=== PATIENT | male | born 1980 | race Caucasian/White ===

== ENCOUNTER 2022-05-17 08:37 | Emergency (ER) | payer OTHER ==
[~2022-05-17] VITALS: Ht 182.9 cm; Wt 98.0 kg
[2022-05-17 08:49] VITALS: BP 122/85
--- NOTE | 2022-05-17 08:58 | NUR ---
Miguel daly in [facility] - 05/17/22 at 0901 by MED1 COVID, FLU SWABS DONE.
--- NOTE | 2022-05-17 08:58 | NUR ---
TENT1
[2022-05-17] MEDS ORDERED: ALBU0.0912 IH (09:06)
== END 2022-05-17 09:11 | disposition home or self-care (01) ==
LOC: MED 08:37
DX: U07.1 COVID-19 (principal)
CPT/HCPCS: 99283